=== PATIENT | female | born 1995 | race Caucasian/White ===

== ENCOUNTER 2024-08-30 08:34 | Emergency (ER) | payer SELFPAY ==
--- NOTE | 2024-08-30 09:48 | ER ---
Nurse's Notes [facility] Name: Hyun Foote Age: 29 yrs Sex: Female : 1995 Arrival Date: 08/30/2024 Time: 08:34 Bed 10 Private MD: Diagnosis: Vaginal Spots, concern for herpes Presentation: 08/30 09:07 Chief complaint: Patient states: has a sore in her perineal area , possible exposure to iw STD, has been with a new partner. Coronavirus screen: At this time, the client does not indicate any symptoms associated with coronavirus-19. Ebola Screen: No symptoms or risks identified at this time. Initial Sepsis Screen: Does the patient meet any 2 criteria? No. Patient's initial sepsis screen is negative. Does the patient have a suspected source of infection? No. Patient's initial sepsis screen is negative. Risk Assessment: Do you want to hurt yourself or someone else? Patient reports no desire to harm self or others. Onset of symptoms was August 29, 2024. 09:07 Method Of Arrival: Ambulatory iw 09:07 Acuity: DREA 4 iw Triage Assessment: 09:10 General: Appears in no apparent distress. Behavior is calm, cooperative. iw Historical: - Allergies: 09:09 No Known Allergies; iw - Home Meds: 09:09 None [Active]; iw - PMHx: 09:09 None; iw Screenin:40 [facility] ED Fall Risk Assessment (Adult) History of falling in the last 3 months, iw including since admission No falls in past 3 months (0 pts) Confusion or Disorientation No (0 pts) Intoxicated or Sedated No (0 pts) Impaired Gait No (0 pts) Mobility Assist Device Used No (0 pt) Altered Elimination No (0 pt) Score/Fall Risk Level 0 - 2 = Low Risk Oriented to surroundings, Maintained a safe environment. Abuse screen: Denies threats or abuse. Denies injuries from another. Nutritional screening: No deficits noted. Tuberculosis screening: No symptoms or risk factors identified. Assessment: 09:10 General: Appears in no apparent distress. Behavior is calm, cooperative. Pain: iw Complains of pain in pelvis. Neuro: Level of Consciousness is awake, alert, obeys commands, Oriented to person, place, time, situation, Moves all extremities. Full function. Cardiovascular: Patient's skin is warm and dry. Respiratory: Respiratory effort is even, unlabored, Respiratory pattern is regular. : Blisters noted on perineum Reports pain. Derm: Skin is intact, is healthy with good turgor. Musculoskeletal: Range of motion: intact in all extremities. 10:30 Reassessment: Patient appears in no apparent distress at this time. Patient and/or iw family updated on plan of care and expected duration. Pain level reassessed. Patient is alert, oriented x 3, equal unlabored respirations, skin warm/dry/pink. Vital Signs: 09:07 BP 143 / 81; Pulse 97; Resp 16; Temp 97.4; Pulse Ox 100% on R/A; Weight 127.01 kg; iw Height 5 ft. 8 in. ; 09:07 Body Mass Index 42.57 (127.01 kg, 172.72 cm) iw ED Course: 08:36 Patient arrived in ED. mr 09:06 Elvin Alexander MD is Attending Physician. ec2 09:09 Triage completed. iw 09:10 Arm band placed on. iw 09:10 Patient has correct armband on for positive identification. Provided Education on: . iw 09:45 Kimberly Gutierrez, RN is Primary Nurse. iw 10:10 Assist provider with pelvic exam: Set up pelvic tray. Performed by Elvin Alexander MD iw Specimens sent to lab. Patient tolerated well. Patient did not have IV access during this emergency room visit. 10:19 Herpes Simplex Virus Culture Sent. bc6 10:19 HSV Culture and Typing Sent. bc6 10:19 Wet Prep Sent. bc6 Administered Medications: No medications were administered Medication: 09:15 VIS not applicable for this client. iw Outcome: 09:48 Discharge ordered by . ec2 10:41 Discharged to home ambulatory, iw 10:41 Condition: good 10:41 Discharge instructions given to patient, Instructed on discharge instructions, follow up and referral plans. medication usage, Demonstrated understanding of instructions, follow-up care, medications, Prescriptions given X 1, 10:42 Patient left the ED. iw Signatures: Jaimee Baker, Reg Reg Kimberly Gutierrez, RN RN iw Kate Griggs bc6 Elvin Alexander MD MD ec2
--- NOTE | 2024-08-30 09:48 | EDPHYS ---
Physician Documentation [facility] Name: Hyun Foote Age: 29 yrs Sex: Female : 1995 Arrival Date: 08/30/2024 Time: 08:34 Bed 10 Private MD: ED Physician Elvin Alexander HPI: 08/30 09:57 This 29 yrs old Female presents to ER via Ambulatory with complaints of STD ec2 Exposure. 09:57 Patient arrives today due to concern for evaluation of possible STD. Patient reports ec2 that she is having some lesions in the perineum. Reports they are painful. Reports initially with 1 lesion and had progressed to multiple lesions.. Historical: - Allergies: 09:09 No Known Allergies; iw - Home Meds: 09:09 None [Active]; iw - PMHx: 09:09 None; iw ROS: 09:57 Constitutional: as per hpi ec2 Exam: 09:57 Constitutional: GEN: NAD Head: atraumatic Eyes: EOMI Ears: External ears are ec2 normal. CV: regular rate LUNGS: no respiratory distress ABD: non-distended. : Performed under tech supervision , Nena, shows multiple vesicular lesionsSKIN: no evidence of rashes MSK: no evidence of trauma Vital Signs: 09:07 BP 143 / 81; Pulse 97; Resp 16; Temp 97.4; Pulse Ox 100% on R/A; Weight 127.01 kg; iw Height 5 ft. 8 in. ; 09:07 Body Mass Index 42.57 (127.01 kg, 172.72 cm) iw MDM: 09:22 Medical Screening Exam initiated ec2 09:59 Data reviewed: vital signs, nurses notes. ED course: Patient arrives today for skin ec2 lesions in the region. Examination shows multiple vesicular lesions. I sent STI testing, suspect herpes. Will empirically start acyclovir. Patient discharged home. Return precautions given.. 08/30 09:16 Order name: GC (Asim/Chl) Probe VAGINAL (Do not order if pt is under 13, order Culture ec2 instead) 08/30 09:16 Order name: Wet Prep ec2 08/30 09:19 Order name: HSV Culture and Typing EDMS Administered Medications: No medications were administered Disposition Summary: 08/30/24 09:48 Discharge Ordered Notes: Location: Home ec2 Condition: Stable ec2 Diagnosis - Vaginal Spots, concern for herpes ec2 Followup: ec2 - With: Private Physician - When: - Reason: Recheck today's complaints Discharge Instructions: - Discharge Summary Sheet ec2 - Genital Herpes ec2 Forms: - Medication Reconciliation Form ec2 - Antibiotic Education ec2 - Prescription Opioid Use ec2 - Patient Portal Instructions ec2 - Leadership Thank You Letter ec2 Prescriptions: - Acyclovir 200 mg Oral Capsule - take 1 capsule ORAL route 5 times per day; 50 capsule; Refills: 0, Product ec2 Selection Permitted Signatures: Dispatcher [employer] EDKimberly Cope RN RN iw Elvin Alexander MD MD ec2 Corrections: (The following items were deleted from the chart) 09:16 09:16 GC (Asim/Chl) Probe VAGINAL+R.LAB.BRZ (Do not order if pt is under 13, order EDMS Culture instead) ordered. EDMS 09:16 09:16 Wet Prep+BA.LAB.BRZ ordered. EDMS EDMS 09:59 09:57 Constitutional: GEN: NAD Head: atraumatic Eyes: EOMI Ears: External ears are ec2 normal. CV: regular rate LUNGS: no respiratory distress ABD: non-distended. : Performed under tech supervision SKIN: no evidence of rashes MSK: no evidence of trauma ec2
[2024-08-30 10:45] VITALS: BP 143/81; TEMP 97.4; O2SAT 100
== END 2024-08-30 10:42 | disposition home or self-care (01) ==
LOC: ER 08:34
DX: Z20.2 Contact with and (suspected) exposure to infections with a predominantly sexual mode of transmission (principal); N89.8 Other specified noninflammatory disorders of vagina
CPT/HCPCS: 87210; 87255; 87490; 87590